=== PATIENT | female | born 1955 | race Caucasian/White ===

== ENCOUNTER → 2016-09-06 | Outpatient (CLI) | payer BC ==
--- NOTE | 2016-09-07 08:06 | DX ---
DEXA Bone Densitometry Technique: DEXA scan was performed on [employer] W Bone Densitometer Indication: Osteopenia Comparator Study: None Results: Lumbar Spine BMD: 0.937 T-score: -1.0 Total Hip (Right) BMD: 0.831 T-score: -0.9 Femoral Neck (Right) BMD: 0.711 T-score: -1.2 Total Hip (Left) BMD: 0.796 T-score: -1.2 Femoral Neck (Left) BMD: 0.684 T-score: -1.5 CONCLUSION: Osteopenia ADDITIONAL COMMENTS: By FRA X calculation, the estimated 10 year risk of any osteoporotic fracture is 6.9%. The estimated 10 year risk of hip fracture is 0.6%. Consider repeating the study in 2 years NOTE: The risk of osteoporotic fractures increases approximately twofold for each 1.0 SD decrease i n T-score. The T-score represents the standard deviations from a young normal, same sex, reference population. Low bone density is not the only risk factor for fracture. Clinical factors to consider include fal l risk, previous osteoporotic fractures, family history of fractures, smoking, and low body weight. Patients who have an unexpectedly low BMD may need to be evaluated for secondary causes of low bone mineral density. In comparing the present study to a prior study, lack of a significant increase or decrease in BMD m ay signify efficacy of the patient's present treatment. Bone mineral density measurements performed with densitometers produced by different manufacturers a re not comparable. For the most reproducible BMD measurement, subsequent exams should be performed on the same densitometer.
== END ==
LOC: BMCIMAGING 15:20
PROVIDERS: ATTEND Internal Medicine Endocrinology, Diabetes & Metabolism
DX: M85.80 Other specified disorders of bone density and structure, unspecified site (principal)

== ENCOUNTER → 2016-10-11 | Outpatient (CLI) | payer BC | LOC: BMCIMAGING 13:42 | DX: Z12.31 Encounter for screening mammogram for malignant neoplasm of breast (principal); Z85.3 Personal history of malignant neoplasm of breast; Z90.11 Acquired absence of right breast and nipple | CPT/HCPCS: G0202-52 ==

== ENCOUNTER → 2017-10-21 | Outpatient (CLI) | payer BC, OTHER | LOC: BMCIMAGING 12:41 | DX: Z12.31 Encounter for screening mammogram for malignant neoplasm of breast (principal); Z85.3 Personal history of malignant neoplasm of breast; Z80.3 Family history of malignant neoplasm of breast ==

== ENCOUNTER → 2017-11-01 | Outpatient (CLI) | payer OTHER | LOC: BMCIMAGING 10:25 | DX: N63.20 Unspecified lump in the left breast, unspecified quadrant (principal); Z90.11 Acquired absence of right breast and nipple; Z85.3 Personal history of malignant neoplasm of breast; Z80.3 Family history of malignant neoplasm of breast ==